=== PATIENT | male | born 2005 | race Two or more races ===

== ENCOUNTER 2024-11-06 22:25 | Emergency (ER) | payer MEDICAID, SELFPAY ==
[2024-11-06 22:26] VITALS: BMI 25.8
[2024-11-06 22:57] VITALS: BP 130/72; PULSE 85; RESP 18; TEMP 36.9; O2SAT 98
--- NOTE | 2024-11-06 23:16 | EDNOTE_ITS ---
<Statement entered by Mary Gonzalez MD - 11/07/24 21:02> As co-signing physician, I was present and available for consult prn. I concur with the plan and care as documented by the midlevel provider. ED Back Injury Pain RME/HPI General Chief Complaint: Back Pain/Injury Stated Complaint: LOWER BACK PAIN Time Seen by Provider: 11/06/24 23:08 Arrival date/time: 11/06/24 22:25 19M with history of psych (no recent dose/med changes) presents to ED with 1 week of worsening low back pain/tightness. Patient denies drug/alcohol use, fall/trauma, paresthesia, bowel/bladder incontinence, and dysuria/hematuria. Limitations: no limitations Related Data Home Medications ?Medication ?Instructions ?Recorded ?Confirmed alprazolam 1 mg tablet 1 mg PO BID 09/18/22 3 dextroamphetamine-amphetamine ER 20 mg PO QDAY 3 09/18/22 20 mg 24hr capsule,extend release (Adderall XR) lithium carbonate 600 mg capsule 1,200 mg PO HS 09/18/22 mirtazapine 30 mg tablet 30 mg PO QDAY 09/18/2209/18 Previous Rx's ?Medication ?Instructions ?Recorded ibuprofen 600 mg tablet 600 mg PO TID PRN pain #30 t abs 02/02/23 cyclobenzaprine 5 mg tablet 5 mg PO TID PRN muscle spa sm #14 11/07/24 tabs Allergies Allergy/AdvReac Type Severity Reaction Status Date / Time Fish Containing Products Allergy Severe Rash Verified 02/02/23 17:59 Pork/Porcine Containing Allergy Severe Rash Verified 02/02/23 17:59 Products Review of Systems Review of Systems Systems Reviewed: All systems reviewed, normal except as documented Constitutional Constitutional: Reports system reviewed and no additional complaints, except as documented, Denies fever(s) and Denies headache(s) ENT Ears, Nose, Mouth, and Throat: Denies disequilibrium and Denies headache(s) Cardiovascular Cardiovascular: Reports system reviewed and no additional complaints, except as documented, Denies chest pain and Denies dyspnea Respiratory Respiratory: Reports system reviewed and no additional complaints, except as documented, Denies cough and Denies dyspnea Gastrointestinal Gastrointestinal: Reports system reviewed and no additional complaints, except as documented, Denies abdominal pain, Denies nausea and Denies vomiting Musculoskeletal Musculoskeletal: Reports as per HPI and Reports back pain Neurologic Neurologic: Reports system reviewed and no additional complaints, except as documented, Denies confusion, Denies disequilibrium and Denies headache(s) Psychiatric Psychiatric: Denies confusion Past Medical History Past Medical History CARDIAC: Negative Cardiac Disorders or Congestive Heart Failure RESPIRATORY: Negative Chronic Obstructive Pulmonary Disease (COPD) or Asthma GENITOURINARY: Negative Renal Disease ENDOCRINE: Negative Diabetes Mellitus Type 1 or Diabetes Mellitus Type 2 HEMATOLOGIC: Negative Sickle Cell Disease PSYCHO/SOCIAL: Positive Schizophrenia, Bipolar Disorder, Depression, Anxiety, Attention Deficit Hyperactivity Disorder and Post Traumatic Stress Disorder Surgical History SURGICAL: Positive Abdominal Surgery Social History SMOKING STATUS: Never smoker SUBSTANCE USE: marijuana and methamphetamine ED Exam General Limitations: Present no limitations General appearance: Present alert and in no apparent distress Head Head exam: Present atraumatic Eye Eye exam: Present normal appearance, PERRL and EOMI ENT ENT exam: Present normal exam, normal oropharynx and mucous membranes moist Neck Neck exam: Present normal inspection, full ROM and trachea midline Chest Chest inspection: Present normal inspection and symmetric chest wall rise Respiratory Respiratory exam: Present normal lung sounds bilaterally Cardiovascular Cardiovascular exam: Present regular rate, normal rhythm and normal heart sounds Abdominal Exam Abdominal exam: Present soft and normal bowel sounds Extremities Exam Extremities exam: Present normal inspection and full ROM Back Exam Back exam: Present normal inspection and full ROM Neurological Exam Neurological exam: Present alert, oriented X3 and CN II-XII intact Psychiatric Psychiatric exam: Present normal affect and normal mood Skin Skin exam: Present warm, dry, intact and normal color Course Quality Measures none Orders Category Date Time Status CYCLObenzaPRINE [Flexeril] Med 11/06/24 23:09 Discontinued 5 mg PO X1 ONE HYDROcodone*/APAP 5/325 [[place] 5/325] Med 11/06/24 23:09 Discontinued 1 tab PO X1 ONE Vital Signs Vital signs: Vital Signs Temperature 98.5 F 11/06/24 22:57 Pulse Rate 85 11/06/24 22:57 Respiratory Rate 18 11/06/24 22:57 Blood Pressure 130/72 11/06/24 22:57 Pulse Oximetry (%) 98 11/06/24 22:57 Oxygen Delivery Method Room Air 11/06/24 22:57 O2 at 98% on RA and WNLs Back Pain / Injury MDM Narrative MDM Narrative:: 19M with history of psych (no recent dose/med changes) presents to ED with 1 week of worsening low back pain/tightness. Patient denies drug/alcohol use, fall/trauma, paresthesia, bowel/bladder incontinence, and dysuria/hematuria. Physical exam reveals no midline back tenderness. Pain is more with ROM, which is mostly intact. Gait intact. Patient is afebrile, calm, and alert. Meds improved symptoms. Likely MSK in nature. Patient data External records reviewed:: [facility] previous records Clinical information provided by:: patient Social determinants that could affect healthcare access:: mental health Patient has the following chronic illnesses:: psych How is presenting disease/condition affected by chronic disease/condition?: uneffected by Evaluation data The following diagnostics were reviewed and interpreted by me:: other (specify) (none) Lab and/or radiology exams considered but not ordered:: not ordered Interpretation Summary: n/a Medications / Prescriptions Medications or Prescriptions considered but not ordered:: ordered Medication administrations:: Medication Administration History Discontinued Medications Hydrocodone Bitart/Acetaminophen (Hydrocodone/[place] 5/325 Tablet) 1 tab PO X1 ONE Stop: 11/06/24 23:10 Last Admin: 11/06/24 23:45 Dose: 1 tab Documented By: BETI Cyclobenzaprine HCl (Cyclobenzaprine 5 Mg Tablet) 5 mg PO X1 ONE Stop: 11/06/24 23:10 Last Admin: 11/06/24 23:46 Dose: 5 mg Documented By: BETI above Consultations Consultation(s) initiated? (list below): No Diagnosis Differential diagnosis back pain/injury: lumbar radiculopathy, sciatica, strain of lumbar region, renal colic, pyelonephritis, thoracic back pain, AAA and discitis Most likely diagnosis given after review of the tests above:: Strain of lumbar region Admission Indicated Admission indicated?: not indicated Admission Request Was there a request for admission?: No Disposition Plan Disposition Plan: Discharge Discharge Attestation Discharge Attestation: The patient and all family members were given an opportunity to ask questions and understood the discharge instructions. Discharge instructions specifically effects, indications for sooner follow up or return to the emergency department, and the expected course of current diagnosis. Patient condition: Stable Discharge Plan Plan Patient Disposition: HOME (Self Care) Discharge Disposition comment: Stable Prescriptions/Referrals Prescriptions/Med Rec: New cyclobenzaprine 5 mg tablet 5 mg PO TID PRN (Reason: muscle spasm) Qty: 14 0RF No Action ibuprofen 600 mg tablet 600 mg PO TID PRN (Reason: pain) Qty: 30 0RF alprazolam 1 mg Tablet 1 mg PO BID dextroamphetamine-amphetamine [Adderall XR] 20 mg Capsule,Extended Release 24hr 20 mg PO QDAY lithium carbonate 600 mg Capsule 1,200 mg PO HS mirtazapine 30 mg Tablet 30 mg PO QDAY Referrals: Cristobal Ash MD [Primary Care Provider] - In 1 week Problem List Clinical Impression: Strain of lumbar region Patient/Caregiver Discharge Instructions Education Materials: ED Back Sprain/Strain Additional Instructions: Please follow-up with PCP within 24-48 hours and return immediately if symptoms worsen. If problem persists, recommend outpatient PT and/or MRI follow-up. In the meantime, rest, use ice/heat, and/or compression. Print Language: Turkmen Stand Alone Forms: Patient Portal Info Letter PA/ABIGAIL Supervising Physician MAINOR/ABIGAIL Supervising Physician: Dr. Gonzalez
[2024-11-06] MEDS: HYDROcodone/APAP 5/325 TABLET 1 TAB PO (23:45)
[2024-11-06] MEDS: CYCLObenzaPRINE 5 MG TABLET PO (23:46)
== END 2024-11-07 01:37 | disposition home or self-care (01) ==
PROVIDERS: Emergency Provider Emergency Medicine; PCP Family Medicine
DX: S39.012A Strain of muscle, fascia and tendon of lower back, initial encounter (principal); X58.XXXA Exposure to other specified factors, initial encounter
CPT/HCPCS: 99283; A9270